=== PATIENT | female | born 1950 | race Caucasian/White ===

== ENCOUNTER 2018-09-22 05:40 | Day surgery (SDC) | payer OTHER ==
[~2018-09-22 05:40] MED LIST: ALENDRONATE SOD70 MG PO; ASPIRIN81 M1 PO; AVAPRO150 MG PO; COREG CR10 MG PO; NORVASC5 MG PO
== END 2018-09-22 10:40 | disposition home or self-care (01) ==
LOC: CIR.AMB 05:40
DX: D48.1 Neoplasm of uncertain behavior of connective and other soft tissue (principal)